=== PATIENT | male | born 1965 | race Caucasian/White ===

== ENCOUNTER 2020-05-14 07:49 | Day surgery (SDC) | payer BC ==
[~2020-05-14 07:49] MED LIST: Midazolam 1 MG/ML 2 ML SDV ONE; Propofol 200 MG/20 ML SDV ONE
[2020-05-14] MEDS ORDERED: Propofol 200 MG/20 ML SDV IV ONE (07:50)
[2020-05-14] MEDS ORDERED: Midazolam 1 MG/ML 2 ML SDV IV ONE (07:50)
[2020-05-14] MEDS ORDERED: Sodium Chloride 0.9% 10 ML Syringe FLUSH PRN (08:00)
[2020-05-14] MEDS ORDERED: Lactated Ringers 1,000 ML IV SCH (08:00)
--- NOTE | 2020-05-14 09:09 | PCM.PN ---
- General Info Date of Service: 05/14/20 - Review of Systems Systems Review Comment:: 54-year-old male here for colonoscopy. His last colon exam was approximately 5 years ago. He has a history of a renal transplant and is on chronic antirejection medication. He denies any recent change in bowel pattern. He does have an aunt who had colon cancer. The patient is medically stable to proceed today. His recent history and physical is reviewed and no significant changes are noted. I have discussed the proposed colonoscopy with the patient. Risks such as but not limited to bleeding and GI injury reviewed. He agrees to proceed. - Patient Data Vitals - Most Recent: Last Vital Signs Temp Pulse 69 05/14/20 08:00 Resp 20 05/14/20 08:00 BP 141/88 H 05/14/20 08:00 Pulse Ox 97 05/14/20 08:00 Weight - Most Recent: 106.594 kg Med Orders - Current: Current Medications Lactated Ringer's (Ringers, Lactated) 1,000 mls @ 50 mls/hr IV ASDIRECTED [facility] Last Admin: 05/14/20 08:33 Dose: 50 mls/hr Documented by: Sodium Chloride (Saline Flush) 10 ml FLUSH Q8HR PRN PRN Reason: keep vein open Discontinued Medications Midazolam HCl (Versed 1 Mg/Ml) Confirm Administered Dose 2 mg .ROUTE .STK-MED ONE Stop: 05/14/20 07:43 Propofol (Diprivan 20 Ml) Confirm Administered Dose 400 mg .ROUTE .STK-MED ONE Stop: 05/14/20 07:43 Sepsis Event Note - Focused Exam Vital Signs: Vital Signs Pulse Resp BP Pulse Ox 05/14/20 08:00 69 20 141/88 H 97 - Problem List Review Problem List Initiated/Reviewed/Updated: Yes - My Orders Last 24 Hours: My Active Orders 05/13/20 12:53 Resuscitation Status Routine 05/14/20 08:00 Peripheral IV Care [RC] . DIRECTED Nothing Per Oral Diet [DIET] Lactated Ringers [Ringers, Lactated] 1,000 ml IV ASDIRECTED Sodium Chloride 0.9% [Saline Flush] 10 ml FLUSH Q8HR PRN Peripheral IV Insertion Adult [OM.PC] Routine 05/14/20 08:30 Patient to Empty Bladder [RC] ASDIRECTED 05/14/20 09:00 Verify Patient Consent Obtain [RC] ASDIRECTED - Assessment Assessment:: Colon cancer screening - Plan Plan:: Colonoscopy
--- NOTE | 2020-05-14 09:45 | PCM.OPNOTE ---
- General Post-Op/Procedure Note Date of Surgery/Procedure: 05/14/20 Operative Procedure(s): Colonoscopy Findings: Small external hemorrhoids Normal-appearing colon and terminal ileum Pre Op Diagnosis: Colon cancer screening Post-Op Diagnosis: Hemorrhoids Anesthesia Technique: MAC Secondary Surgeon: Kaz Sen Pathology: none EBL in mLs: 0 Complications: None Condition: Good
[2020-05-14 10:20] VITALS: BP 135/82; PULSE 60
--- NOTE | 2020-05-14 13:49 | OR ---
DATE OF SURGERY: 05/14/2020 SURGEON: Kaz Sen MD PREOPERATIVE DIAGNOSIS: Colon cancer screening. POSTOPERATIVE DIAGNOSIS: Hemorrhoids. OPERATION PERFORMED: Colonoscopy. INDICATIONS FOR SURGERY: This 54-year-old male presents for his screening colonoscopy. 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 FINDINGS: The patient's colon appears normal as does the terminal ileum. There are a few small external hemorrhoids, but the exam is otherwise unremarkable. DESCRIPTION OF PROCEDURE: The patient was taken to the operating room. He was given intravenous sedation and with him in the left lateral decubitus position, digital rectal exam was performed showing no rectal masses. The Olympus colonoscope was inserted into the rectum. Retroflexed examination of the rectal canal is performed. The scope was then carefully advanced under direct visualization through the entire length of the colon until the cecum is reached. Cecal acquisition is confirmed by noting the normal internal cecal anatomy including the appendiceal orifice and the ileocecal valve. The ileocecal valve was cannulated and the terminal ileum was examined and appeared normal. The scope was then slowly withdrawn sequentially re-examining the colonic segments until the entire colon and rectum had been fully examined. The scope was removed and the patient was taken from the operating room in satisfactory condition. ESTIMATED BLOOD LOSS: Zero. COMPLICATIONS: None. PROGNOSIS: Good. /[id number]/MODL
== END 2020-05-14 10:30 | disposition home or self-care (01) ==
LOC: KA.SDS 07:49
PROVIDERS: ATTEND Surgery
DX: Z12.11 Encounter for screening for malignant neoplasm of colon (principal); K64.4 Residual hemorrhoidal skin tags; D64.9 Anemia, unspecified; I25.10 Atherosclerotic heart disease of native coronary artery without angina pectoris; N40.0 Benign prostatic hyperplasia without lower urinary tract symptoms; M10.9 Gout, unspecified; I10 Essential (primary) hypertension; E78.5 Hyperlipidemia, unspecified; G47.33 Obstructive sleep apnea (adult) (pediatric); Z88.8 Allergy status to other drugs, medicaments and biological substances; Z79.82 Long term (current) use of aspirin; Z94.0 Kidney transplant status; Z98.890 Other specified postprocedural states; Z79.899 Other long term (current) drug therapy
CPT/HCPCS: 00812; 45378; J2250; J2704; J7120